=== PATIENT | male | born 1950 | race Caucasian/White ===

== ENCOUNTER 2019-06-08 08:10 | Emergency (ER) | payer OTHER ==
[~2019-06-08] VITALS: Ht 177.8 cm; Wt 90.7 kg
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
[2019-06-08] MEDS ORDERED: MORPHINE SULFATE 4 MG/1 ML DISP.SYRIN ONE (08:27)
[2019-06-08] MEDS ORDERED: ONDANSETRON 4 MG/2 ML VIAL ONE ×2 (08:27→12:26)
[2019-06-08] MEDS ORDERED: MORPHINE SULFATE 2 MG/1 ML DISP.SYRIN IV ONE (08:30)
[2019-06-08] MEDS ORDERED: ONDANSETRON 4 MG/2 ML VIAL IV ONE ×2 (08:30→12:30)
[2019-06-08] MEDS ORDERED: IV NORMAL SALINE 1000 ML BAG IV ONE (08:30)
[2019-06-08] MEDS ORDERED: CITA40TA11 PO (08:36)
[2019-06-08] MEDS ORDERED: LISI40TA4 PO (08:36)
[2019-06-08] MEDS ORDERED: METF-440 PO (08:36)
[2019-06-08] MEDS ORDERED: POTA8TAB3 PO (08:36)
[2019-06-08] MEDS ORDERED: CLOP75TA33 PO (08:36)
[2019-06-08] MEDS ORDERED: TERA2CAP4 PO (08:36)
[2019-06-08] MEDS ORDERED: KLOR CON PO (08:36)
[2019-06-08] MEDS ORDERED: LEVO50TA8 PO (08:36)
[2019-06-08] MEDS ORDERED: ASPI-612 PO (08:36)
[2019-06-08] MEDS ORDERED: SIMV20TA6 PO (08:36)
[2019-06-08] MEDS ORDERED: ATEN50TA PO (08:36)
[2019-06-08] MEDS ORDERED: HYDROMORPHONE 1 MG/1 ML DISP.SYRIN IV ONE ×2 (08:45→12:30)
[2019-06-08] MEDS ORDERED: HYDROMORPHONE 1 MG/1 ML DISP.SYRIN ONE ×2 (08:46→12:26)
[2019-06-08] MEDS ORDERED: IOHEXOL 300MG/ML 100 ML INFUS..BTL ONE (08:48)
[2019-06-08] MEDS ORDERED: SWABABLE VALVE TRANSFER SET EA MC ONE (08:48)
[2019-06-08] MEDS ORDERED: IV NORMAL SALINE 250 ML IV ONE (08:48)
[2019-06-08 08:59] LABS: BASOPHILS % (AUTO) 0.6 % (0.0-2.0); EOSINOPHILS # (AUTO) 0.1 K/uL (0.0-0.7); EOSINOPHILS % (AUTO) 1.5 % (0.0-7.0); HEMATOCRIT 44.9 % (36.7-47.1); HEMOGLOBIN 15.6 g/dL (12.5-16.3); LYMPHOCYTES # (AUTO) 1.5 K/uL (20.0-40.0); MEAN CORPUSCULAR HEMOGLOBIN 28.5 uug (23.8-33.4); MEAN CORPUSCULAR HGB CONC 35 g/dL (32.5-36.3); MEAN CORPUSCULAR VOLUME 81.9 fL (73.0-96.2); MONOCYTES # (AUTO) 0.6 K/uL (2.0-10.0); MONOCYTES % (AUTO) 8.7 % (0.0-11.0); NEUTROPHILS % (AUTO) 69.2 % (38.5-71.5); PLATELET COUNT (AUTO) 124 K/uL (152-348); RED BLOOD CELL COUNT(AUTO) 5.48 MIL/uL (4.06-5.63); WHITE BLOOD COUNT (AUTO) 7.3 K/uL (3.6-10.2)
[2019-06-08 09:07] LABS: CREATININE 1.4 mg/dL (0.6-1.3); POTASSIUM 3.8 mmol/L (3.5-5.1)
[2019-06-08 09:14] LABS: BILIRUBIN,DIRECT 0.2 mg/dL (0.0-0.2); BILIRUBIN,TOTAL 0.7 mg/dL (0.2-1.0); TOTAL PROTEIN, SERUM 7.1 g/dL (6.4-8.2)
[2019-06-08] MEDS ORDERED: hydrALAZINE HCL 20 MG/1 ML VIAL IV ONE ×2 (09:15→10:45)
[2019-06-08] MEDS ORDERED: hydrALAZINE HCL 20 MG/1 ML VIAL ONE ×2 (09:17→10:35)
--- NOTE | 2019-06-08 10:30 | NUR ---
C-SPINE PRECAUTION CLEARED BY SASKIA BLANCO.
[2019-06-08 10:41] VITALS: BP 172/99
--- NOTE | 2019-06-08 10:46 | NUR ---
[facility] HAS NO ICU BED AVAILABLE.
--- NOTE | 2019-06-08 10:54 | NUR ---
Pt info faxed to [facility] transfer center per Md order.
--- NOTE | 2019-06-08 11:12 | NUR ---
SASKIA BLANCO SPEAKING W/ DR. GRIFFIN FROM [facility].
--- NOTE | 2019-06-08 11:25 | NUR ---
TRANSFER REPORT GIVEN TO MARGE HOOKER, AT [facility].
--- NOTE | 2019-06-08 11:25 | NUR ---
PT HAS BEEN ACCEPTED BY DR. CHASE, TRAUMA SURGEON, AT [facility].
--- NOTE | 2019-06-08 11:27 | NUR ---
PER DR. CHASE, TRAUMA SURGEON AT [facility], PT REQUIRES CT OF ABD/PELVIS AND HEAD, BUT HAVE BEEN INSTRUCTED NOT TO PERFORM THE CT SCAN IN OUR FACILITY DUE TO INABILITY TO IMMOBILIZE THE SPINE ADEQUATELY.
--- NOTE | 2019-06-08 11:28 | NUR ---
PER INSTRUCTIONS FROM [facility] ER, 911 HAS BEEN CALLED FOR ALS TRANSFER.
--- NOTE | 2019-06-08 12:00 | NUR ---
Placed a call to [facility] for CCT transfer, ETA 1400, trip# [phone].
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
--- NOTE | 2019-06-08 12:11 | NUR ---
911 EMS CAPTAIN'S NAME, NEGRO BRAMBILA.
--- NOTE | 2019-06-08 14:41 | NUR ---
PT LOG-ROLLED AND PLACED ON BACKBOARD FOR TRANSFER. PT WILL BE TRANSFERRED TO [facility] ER VIA [facility], PRIVATE AMBULANCE, CCT TEAM.
== END 2019-06-08 14:47 | disposition short-term general hospital (02) ==
LOC: ER 08:10
DX: S22.039A Unspecified fracture of third thoracic vertebra, initial encounter for closed fracture (principal); I10 Essential (primary) hypertension; E78.5 Hyperlipidemia, unspecified; I25.10 Atherosclerotic heart disease of native coronary artery without angina pectoris; E03.9 Hypothyroidism, unspecified; Z95.1 Presence of aortocoronary bypass graft; Z79.82 Long term (current) use of aspirin; Z79.899 Other long term (current) drug therapy; Z79.01 Long term (current) use of anticoagulants; V49.9XXA Car occupant (driver) (passenger) injured in unspecified traffic accident, initial encounter; Y93.89 Activity, other specified; Y92.89 Other specified places as the place of occurrence of the external cause; Y99.8 Other external cause status
CPT/HCPCS: 36415; 71045; 71260; 72125; 80048; 80076; 84484; 85025; 85730; 86850; 86900; 86901; 93005; 96374; 96375; 96376; 99291; J0360 ×2; J1170 ×2; J2270; J2405 ×2; Q9967; 70030-TC; A4663; J7030; J7050